=== PATIENT | female | born 1995 | race Caucasian/White ===

== ENCOUNTER → 2016-09-19 | Outpatient (CLI) | payer OTHER ==
--- NOTE | 2016-09-19 14:44 | KCIC ---
OB <14 WKS W/TV Clinical Indication: Amenorrhea. Unknown dates, positive test at office. Comparison: None. TECHNIQUE: Real-time ultrasound imaging of the pelvis using transabdominal and transvaginal window is performed. Findings: Uterus measures 9.1 x 3.6 x 5.2 cm. Incidentally visualized urinary bladder is unremarkable. The ovaries are not well seen transabdominally due to overlying bowel gas. Anteverted uterus. Small amount of pelvic free fluid. Trace fluid in the endocervical canal. The right ovary measures 2.3 x 2.9 x 2.4 cm. There is a probable corpus luteum measuring up to 2.3 cm. Left ovary measures 2.6 x 1.6 x 1.6 cm. There is normal blood flow in the ovaries. There is intrauterine gestational sac. The contour is normal. No perigestational hemorrhage. Yolk sac is seen. There is a pole. [place] rump length 0.3 cm, 6 weeks 0 days. EDC 05/15/2017. Estimated heart rate 117 bpm. IMPRESSION: 1. Single live intrauterine gestation, estimated sonographic gestational age 6 weeks and 0 days. 2. Probable right ovary corpus luteum. 3. Mild pelvic free fluid. Electronically signed by: Pankaj Cardozo MD (09/19/2016 2:40 PM)
== END | disposition home or self-care (01) ==
LOC: KCIC US 09:45
PROVIDERS: ATTEND Family Medicine
DX: Z34.01 Encounter for supervision of normal first pregnancy, first trimester (principal); Z3A.01 Less than 8 weeks gestation of pregnancy; N91.2 Amenorrhea, unspecified
CPT/HCPCS: 76801; 76817